=== PATIENT | male | born 2005 | race African-American/Black ===

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

== ENCOUNTER → 2024-06-27 11:41 | Outpatient (BNVA) | payer MEDICAID, SELFPAY | PROVIDERS: PCP Family Medicine; Visit Provider Family Medicine | DX: R04.0 Epistaxis (principal) | CPT/HCPCS: 85025; 85610; 85730 ==

== ENCOUNTER 2024-07-23 10:59 | Outpatient (CLI) | payer MEDICAID, SELFPAY | END 2024-07-23 11:00 | disposition home or self-care (01) | LOC: SLEEP 11:02 | PROVIDERS: PCP Family Medicine; Visit Provider Family Medicine | DX: G47.30 Sleep apnea, unspecified (principal) | CPT/HCPCS: G0399 ==